=== PATIENT | male | born 1955 | race Two or more races ===

== ENCOUNTER 2018-01-02 05:47 | Day surgery (SDC) | END 2018-01-02 09:40 | disposition home or self-care (01) ==

== ENCOUNTER 2018-08-07 05:48 | Day surgery (SDC) | payer OTHER ==
--- NOTE | 2018-08-06 14:49 | PREOPHP ---
DATE OF ADMISSION: 08/07/2018 HISTORY OF PRESENT ILLNESS: This 63-year-old gentleman is admitted for elective cataract surgery of the left eye. The patient has had progressive deterioration of vision in both eyes and 7 months ago underwent cataract surgery of the right eye with good visual recovery. The patient denies prior hist ory of eye disease or injury. The patient does have a history of fwh-aevdanl-pgzuvjsmb diabetes gómez itus and COPD. CURRENT MEDICATIONS: Include: 1. Jardiance. 2. Metformin. 3. Lisinopril. 4. Atorvastatin. 5. Januvia. 6. Ibuprofen. 7. Ventolin. ALLERGIES: THERE ARE NO KNOWN ALLERGIES. PHYSICAL EXAMINATION: Visual acuity with correction is 20/40 in the right eye and 20/70 in the left eye. Slit lamp examination reveals a posterior chamber intraocular lens in the right eye and a nucle ar sclerotic and posterior subcapsular cataract in the left eye. Applanation tonometry is 13 mmHg. Examination of the retina is within normal limits without evidence of diabetic retinopathy. DIAGNOSIS: Nuclear sclerotic and posterior subcapsular cataract, left eye. PLAN: Cataract extraction with lens implant, left eye. The risks and alternatives to the surgery quinn ve been discussed with the patient as well as the hope for improvement of visual acuity leading to gr eater ability to perform activities of daily living. The patient understands this and agrees to proc eed with surgery. Dictated By: WAN MCDUFFIE/SHIELA Conf#: [id number] DID#: [id number]
[~2018-08-07] VITALS: Ht 167.6 cm; Wt 59.2 kg
[2018-08-07] VITALS (8 sets, daily range): BP systolic 127–162; BP diastolic 70–80; PULSE 78–89; RESP 13–18; Ht 167.6 cm; Wt 59.2 kg
[~2018-08-07 05:48] MED LIST: ATOR-2 PO; EMPA25TA PO; MTF1000T PO; OMEG1CAP20 PO
[2018-08-07] MEDS ORDERED: CYCLOPENTOLATE/PHENYLEPH 2 ML OPH OPER SCH (06:00)
[2018-08-07] MEDS ORDERED: DICLOFENAC 0.1% 2.5 ML OPH OPER SCH (06:00)
[2018-08-07] MEDS ORDERED: MOXIFLOXACIN 0.5% 3 ML OPH OPER SCH (06:00)
[2018-08-07] MEDS ORDERED: TROPICAMIDE 1% 15 ML OPH OPER SCH (06:00)
[2018-08-07] MEDS ORDERED: SOD CHLORIDE 0.9% 1,000 ML IV SCH (06:00)
[2018-08-07] MEDS ORDERED: LISI-313 PO (06:59)
[2018-08-07] MEDS ORDERED: SITA100T11 PO (06:59)
[2018-08-07] MEDS ORDERED: FLUT16SP17 NASAL (06:59)
[2018-08-07] MEDS ORDERED: ALBU8.5H8 INH (07:00)
[2018-08-07] MEDS ORDERED: DEXAMETHASONE 4 MG/ML 1 ML INJ ONE (07:10)
[2018-08-07] MEDS ORDERED: TETRACAINE 0.5% 4 ML OPH ONE (07:10)
[2018-08-07] MEDS ORDERED: LIDOCAINE 4% (MPF) 5 ML INJ ONE (07:10)
[2018-08-07] MEDS ORDERED: CEFAZOLIN 1 GM INJ ONE (07:10)
[2018-08-07] MEDS ORDERED: CARBACHOL 0.01% 1.5 ML OPH INJ ONE (07:10)
[2018-08-07] MEDS ORDERED: EPINEPHrine 1 MG INJ ONE (07:10)
[2018-08-07] MEDS ORDERED: GENTAMICIN 80 MG INJ ONE (07:10)
[2018-08-07] MEDS ORDERED: NA HYALURONATE/CHONDROITIN 0.5 ML SYG ONE (07:11)
[2018-08-07] MEDS ORDERED: LIDOCAINE 1% (MPF) 10 ML INJ ONE (07:11)
--- NOTE | 2018-08-07 07:30 | PREAC ---
Date/Time of Note Date/Time of Note DATE: 08/07/18 TIME: 07:29 Anesthesia Eval and Record Evaluation Time Pre-Procedure Interview DATE: 08/07/18 TIME: 07:29 Age 63 Sex male NPO: 8 hrs Preoperative diagnosis It eye cataract Planned procedure Lt eye CE IOL implant Past Medical History Past Medical History: Includes Cardio: HTN, Dyslipidemia Endo: Diabetes Surgery & Anesthesia Issues No known issue Meds Anticoagulation: No Beta Cayetano within 24 hr: No Reason Beta Cayetano not given: Pt. not on B-Cayetano Reported Medications Albuterol Sulfate* (Proair HFA*) 8.5 Gm Hfa.aer.ad, 2 PUFF INH Q4H PRN for WHEEZING AND SOB, #1 INHALER 08/07/18 Fluticasone Propionate* (Fluticasone Propionate* Nasal) 50 Mcg/Deming - 16 Gm Deming.susp, 1 SPRAY NASAL DAILY, #1 BOTTLE TO EACH NOSTRIL 08/07/18 Sitagliptin* (Januvia*) 100 Mg Tablet, 100 MG PO DAILY, #30 TAB 08/07/18 Lisinopril* (Lisinopril*) 5 Mg Tablet, 5 MG PO DAILY, #30 TAB 08/07/18 Empagliflozin (Jardiance) 25 Mg Tablet, 25 MG PO DAILY, TAB 01/02/18 Atorvastatin* (Atorvastatin*) 80 Mg Tablet, 80 MG PO QHS, #30 TAB 01/02/18 Metformin* (Glucophage*) 1,000 Mg Tablet, 1000 MG PO BID, #60 TAB 01/02/18 Discontinued Reported Medications Lamont-3/Dha/Epa/Fish Oil (FISH OIL 1,000 MG SOFTGEL) 1 Each Capsule, 1 EACH PO DAILY, CAP 01/02/18 Current Medications Diclofenac Sodium (Voltaren 0.1%) 1 drop Q5 MIN X 3 OPER Last administered on 08/07/18at 06:13; Admin Dose 1 DROP; Start 08/07/18 at 06:00 Tropicamide (Mydriacyl 1%) 1 drop Q5 MIN X3 OPER Last administered on 08/07/18at 06:13; Admin Dose 1 DROP; Start 08/07/18 at 06:00 Moxifloxacin HCl (Vigamox) 1 drop Q5 MIN X 3 OPER Last administered on 08/07/18at 06:13; Admin Dose 1 DROP; Start 08/07/18 at 06:00 Cyclopentolate/ Phenylephrine (Cyclomydril Oph 2 ml) 1 drop Q5 MIN X 3 OPER Last administered on 08/07/18at 06:13; Admin Dose 1 DROP; Start 08/07/18 at 06:00 Sodium Chloride 1,000 ml @ 25 mls/hr Q24H IV Last administered on 08/07/18at 06:14; Admin Dose 25 MLS/HR; Start 08/07/18 at 06:00 Meds reviewed: Yes Allergies Coded Allergies: No Known Allergy (Unverified , 08/07/18) Allergies Reviewed: Yes Labs/Studies Labs Reviewed: Reviewed by anesthesiologist test: N/A Studies: ECG Pre-procedure Exam Last vitals Vital Signs Date Temp Pulse Resp B/P (MAP) Pulse Ox O2 O2 Flow FiO2 Time Delivery Rate 08/07/18 97.6 84 18 162/80 100 Room Air 06:58 (107) Airway: Adequate mouth opening, Adequate thyromental dist Mallampati: Mallampati II Teeth: Normal Lung: Normal Heart: Normal ASA Physical Status ASA physical status: 3 Emergency: None Planned Anesthetic General/MAC: MAC Planned Pain Management Parenteral pain med Pre-operative Attestations Prior to commencing anesthesia and surgery, the patient was re-evaluated, there was verification of: *The patient's identity *The results of appropriate recent lab work and preoperative vital signs *The above evaluation not changing prior to induction *Anesthetic plan, risk benefits, alternative and complications discussed with patient/family; questions answered; patient/family understands, accepts and wishes to proceed. EL VELA MD Aug 07, 2018 07:30
[2018-08-07] MEDS ORDERED: FENTAnyl 50 MCG/ML VIAL ONE (07:38)
[2018-08-07] MEDS ORDERED: MIDAZOLAM 1 MG/ML 2 ML INJ ONE (07:38)
[2018-08-07] MEDS ORDERED: LIDOCAINE 2% (SDV) 5 ML INJ ONE (08:09)
[2018-08-07] MEDS ORDERED: PROPOFOL 20 ML ONE (08:09)
--- NOTE | 2018-08-07 08:20 | PAC ---
Date/Time of Note Date/Time of Note DATE: 08/07/18 TIME: 08:19 Post-Anesthesia Notes Post-Anesthesia Note Last documented vital signs Vital Signs Date Temp Pulse Resp B/P (MAP) Pulse Ox O2 O2 Flow FiO2 Time Delivery Rate 08/07/18 97.6 84 18 162/80 100 Room Air 06:58 (107) Activity: WNL Respiratory function: WNL Cardiovascular function: WNL Mental status: Baseline Pain reasonably controlled: Yes Hydration appropriate: Yes Nausea/Vomiting absent: Yes Comments BP:135/75, P:80, Spo2:100%, T:99 EL VELA MD Aug 07, 2018 08:20
[2018-08-07] MEDS ORDERED: HYDROmorphONE 1 MG/5 ML IV SYRINGE IV PRN ×2 (08:30)
[2018-08-07] MEDS ORDERED: MEPERIDINE 25 MG INJ IV PRN (08:30)
[2018-08-07] MEDS ORDERED: ONDANSETRON 4 MG INJ IV PRN (08:30)
[2018-08-07] MEDS ORDERED: FENTAnyl 50 MCG/ML VIAL IV PRN (08:30)
[2018-08-07] MEDS ORDERED: DIPHENHYDRAMINE 50 MG INJ IV PRN (08:30)
--- NOTE | 2018-08-07 09:26 | OPR ---
DATE OF OPERATION: 08/07/2018 PREOPERATIVE DIAGNOSES: Nuclear sclerotic and posterior subcapsular cataract, left eye. POSTOPERATIVE DIAGNOSES: Nuclear sclerotic and posterior subcapsular cataract, left eye. OPERATION PERFORMED: Cataract extraction with lens implant, left eye. SURGEON: Wan Panda M.D. ANESTHESIOLOGIST: Dr. Rowe. ANESTHESIA: Local standby. PROCEDURE: The patient was brought to the operating room and placed on the table with an IV in place and the patient attached to an monitoring tech. Oxygen was given via face mask. After some intravenous sedation was administered, local anesthesia was given using Xylocaine 2% with epinephrine, mixed with Marcaine 0.5%. This was given in a lid block and retrobulbar injection. The patient was then prepped and draped in the usual sterile manner. A wire lid speculum was inserted between the lids of the left eye. A Superblade was used to enter th e anterior chamber at the corneoscleral limbus at the 10:30 o'clock position. A separate incision wa s made using a 3.0-mm keratome which entered the corneoscleral junction at the 12 o'clock position. Through this 3-mm opening, an irrigating cystotome was introduced into the anterior chamber. The amirah mber was filled with Viscoat and an anterior capsulotomy was performed. Balanced salt solution was t hen used for hydrodissection of the lens. A phacoemulsification handpiece was then brought into the field and introduced into the anterior chamber. The lens nucleus was emulsified using a deep groove and cracking the nucleus into quadrants. Following this, each quadrant was aspirated and emulsified at the pupillary margin. After this was completed, the irrigation/aspiration handpiece was brought to the field, introduced in to the posterior chamber, and the lens cortical material was removed. When this was completed, addit ional Viscoat was injected into the anterior and posterior chambers. The 3-mm opening had its internal lips enlarged, and then the posterior chamber intraocular lens angel uring 19.5 diopters ([employer] Model LI61AO) was then injected into the posterior c hamber using the lens injector system. After the leading haptic was introduced into the capsular bag and the lens optic was present in the center of the eye, the injector was removed and the trailing h aptic was grasped with non-toothed forceps and introduced into the capsular fold superiorly. A [place] ey hook was then used to rotate the intraocular lens so that the lips were oriented in the horizontal meridian. One 10-0 nylon suture was placed across the wound. Prior to tying, the irrigation/aspiration handpiece was reintroduced into the anterior chamber to rem ove the Viscoat. Miochol was instilled to constrict the pupil, and then the 10-0 nylon suture was ti ed. The ends were cut short and then the knot was buried. Then, 0.5 mL of dexamethasone and 0.5 mL of Ancef were injected into the sub-Tenon space in the infer ior fornix. Ciloxan drops were then placed on the surface of the eye. The speculum was removed and a patch was applied. The patient then left the operating room in satisfactory condition. Dictated By: WAN MCDUFFIE/SHIELA Conf#: [id number] DID#: [id number] CC: WAN PANDA MD;*EndCC*
== END 2018-08-07 09:36 | disposition home or self-care (01) ==
LOC: SDS 05:48
PROVIDERS: ATTEND Ophthalmology
DX: H25.12 Age-related nuclear cataract, left eye (principal); E11.9 Type 2 diabetes mellitus without complications; I10 Essential (primary) hypertension; Z79.84 Long term (current) use of oral hypoglycemic drugs
CPT/HCPCS: 66984; 82962; J0171; J0690; J1100; J1580; J2250; J3010; V2632; Z7512; Z7610